=== PATIENT | female | born 1975 | race Caucasian/White ===

== ENCOUNTER 2016-05-26 22:59 | Emergency (ER) | payer BC ==
[2016-05-26] MEDS ORDERED: KETOROLAC 30 MG/ML VIAL ONE (23:36)
[2016-05-26] MEDS ORDERED: DIPHENHYDRAMINE 50 MG/ML VIAL ONE (23:36)
[2016-05-26] MEDS ORDERED: METOCLOPRAMIDE 10 MG/2 ML VIAL ONE (23:36)
[2016-05-27] MEDS ORDERED: DIPHENHYDRAMINE 50 MG/ML VIAL ONE (01:11)
[2016-05-27] MEDS ORDERED: METOCLOPRAMIDE 10 MG/2 ML VIAL ONE (01:11)
== END 2016-05-27 02:00 | disposition home or self-care (01) ==
LOC: ER 22:59
DX: G43.809 Other migraine, not intractable, without status migrainosus (principal)
CPT/HCPCS: 70450; 96374; 96375; 96376